=== PATIENT | male | born 1980 | race Caucasian/White ===

== ENCOUNTER 2017-05-28 03:23 | Emergency (ER) | payer BC ==
[~2017-05-28] VITALS: Ht 190.5 cm; Wt 136.1 kg
[~2017-05-28 03:23] MED LIST: ATARAX,VISTARIL50 MG PO; ATIVAN1 MG PO; AVPAK AZITHROM250 M1 PO; CARBIDOPA/LEVOD1 TA1 PO; CEPHALEXIN500 M1 PO; CYCLOBENZAPRINE10 MG PO; Clonidine HCl0.3 MG PO; FLEXERIL10 MG PO; HYDROCODON-ACETAMINO; HYDROCODONE BIT1 T11 PO; Motrin,Rufen800 MG PO; PERCOCET 325 MG1 TAB PO; PREDNICOT20 MG PO; TRAZODONE50 MG PO; VICODIN 5/500 505 MG PO; VISTARIL25 M2 PO; ZOFRAN 4 MG ED2 TAB PO; ZOFRAN4 MG PO
[2017-05-28 03:29] VITALS: BP 167/107
[2017-05-28 03:45] LABS: BILIRUBIN NEGATIVE (NEGATIVE); BLOOD 3+ (NEGATIVE); CLARITY CLEAR (CLEAR); COLOR YELLOW (YELLOW); GLUCOSE NEGATIVE (NEGATIVE); KETONE NEGATIVE (NEGATIVE); LEUKO ESTERASE NEGATIVE (NEGATIVE); NITRITE NEGATIVE (NEGATIVE); PH 5.5 (5.0-9.0); SPECIFIC GRAVITY >= 1.030 (1.005-1.030); UROBILINOGEN 0.2 E.U./dl (0.2-1.0)
[2017-05-28 03:52] LABS: BACTERIA TRACE; RBC 31-40 rbc/hpf (0-2); WBC 0-2 wbc/hpf (0-5)
[2017-05-28 04:35] LABS: BASO # 0.1 10*3/uL (0.0-0.1); BASO % 1.2 % (0.0-1.0); EOS # 0.2 10*3/uL (0.0-0.4); EOS % 2.9 % (1.0-4.0); HEMATOCRIT 43.5 % (42.0-52.0); HEMOGLOBIN 15.1 g/dl (14.0-18.0); LYMPH % 25.8 % (27.0-41.0); MEAN CELL VOLUME 82.9 fl (80.0-94.0); MEAN CORPUSCULAR HGB 28.8 pg (27.0-31.0); MEAN CORPUSCULAR HGB CONC 34.7 g/dl (33.0-37.0); MEAN PLATELET VOLUME 9.8 fl (9.6-12.3); MONO # 0.7 10*3/uL (0.1-1.0); MONO % 9.7 % (3.0-9.0); NEUT # 4.6 10*3/uL (2.3-7.9); NEUT % 60.3 % (47.0-73.0); PLATELET COUNT AUTOMATED 234 10*3/uL (130-400); RED BLOOD COUNT 5.25 10*6/uL (4.50-5.90); RED CELL DISTRI WIDTH 12.4 % (0-14.5); WHITE BLOOD COUNT 7.7 10*3/uL (4.8-10.8)
[2017-05-28 04:52] LABS: ALBUMIN 3.7 gm/dl (3.1-4.5); ALKALINE PHOSPHATASE 87 U/L (45-117); BUN 10 mg/dl (7-24); CHLORIDE 105 mmol/L (98-107); POTASSIUM 3.5 mmol/L (3.5-5.1); SGOT/AST 19 IU/L (3-35); SGPT/ALT 40 U/L (12-78); SODIUM 138 mmol/L (136-145); TOTAL PROTEIN 7.2 gm/dL (6.4-8.2)
[2017-05-28] MEDS ORDERED: Percocet 325 MG1 TAB PO (05:36)
== END 2017-05-28 06:15 | disposition home or self-care (01) ==
LOC: ED 03:23
PROVIDERS: Emergency Medicine
DX: N20.0 Calculus of kidney (principal); F11.10 Opioid abuse, uncomplicated; Z98.890 Other specified postprocedural states; Z88.1 Allergy status to other antibiotic agents

== ENCOUNTER 2017-08-24 14:45 | Inpatient (IN) | payer BC ==
[~2017-08-24] VITALS: Ht 190.5 cm; Wt 151.6 kg
[~2017-08-24 14:45] MED LIST changes: +Percocet 325 MG1 TAB PO
[2017-08-24 15:50] VITALS: BP 152/98
[2017-08-24 16:00] VITALS: BP 152/98
[2017-08-24] MEDS ORDERED: PROTONIX40 MG PO (16:37)
[2017-08-24 16:52] LABS: BASO # 0.1 10*3/uL (0.0-0.1); BASO % 0.9 % (0.0-1.0); EOS # 0.1 10*3/uL (0.0-0.4); HEMATOCRIT 45.6 % (42.0-52.0); HEMOGLOBIN 15.6 g/dl (14.0-18.0); LYMPH # 1.1 10*3/uL (1.3-4.4); LYMPH % 16.7 % (27.0-41.0); MEAN CELL VOLUME 84.9 fl (80.0-94.0); MEAN CORPUSCULAR HGB 29.1 pg (27.0-31.0); MEAN CORPUSCULAR HGB CONC 34.2 g/dl (33.0-37.0); MEAN PLATELET VOLUME 9.9 fl (9.6-12.3); MONO # 0.5 10*3/uL (0.1-1.0); MONO % 7.1 % (3.0-9.0); NEUT # 4.9 10*3/uL (2.3-7.9); NEUT % 73.1 % (47.0-73.0); PLATELET COUNT AUTOMATED 225 10*3/uL (130-400); RED BLOOD COUNT 5.37 10*6/uL (4.50-5.90); RED CELL DISTRI WIDTH 12.2 % (0-14.5); WHITE BLOOD COUNT 6.6 10*3/uL (4.8-10.8)
[2017-08-24 17:07] LABS: ALKALINE PHOSPHATASE 86 U/L (45-117); BUN 11 mg/dl (7-24); CHLORIDE 102 mmol/L (98-107); CREATININE 1.04 mg/dL (0.70-1.30); POTASSIUM 4.6 mmol/L (3.5-5.1); SGOT/AST 25 IU/L (3-35); SGPT/ALT 53 U/L (12-78); SODIUM 138 mmol/L (136-145); TOTAL PROTEIN 7.5 gm/dL (6.4-8.2)
[2017-08-24 17:18] LABS: ETHYL ALCOHOL < 3.0 mg/dl (<3)
[2017-08-24 18:43] LABS: BILIRUBIN NEGATIVE (NEGATIVE); BLOOD NEGATIVE (NEGATIVE); CLARITY CLEAR (CLEAR); COLOR YELLOW (YELLOW); GLUCOSE NEGATIVE (NEGATIVE); KETONE NEGATIVE (NEGATIVE); LEUKO ESTERASE NEGATIVE (NEGATIVE); NITRITE NEGATIVE (NEGATIVE); PH 6.5 (5.0-9.0); UROBILINOGEN 0.2 E.U./dl (0.2-1.0)
[2017-08-24 18:52] LABS: RBC 0-2 rbc/hpf (0-2); URINE AMPHETAMINES < 1000 (1000ng/ml); URINE BARBITURATES < 200 (200ng/ml); URINE BENZODIAZEPINES < 200 (200ng/ml); URINE CANNABINOIDS (THC) < 50 (50ng/ml); URINE COCAINE < 300 (300ng/ml); URINE METHADONE < 300 (300ng/ml); URINE OPIATES < 300 (300ng/ml); WBC 0-2 wbc/hpf (0-5)
[2017-08-24 18:53] LABS: URINE PHENCYCLIDINE < 25 (25ng/ml)
[2017-08-24 20:00] VITALS: BP 150/86
[2017-08-25] VITALS: BP 139/70
[2017-08-25 00:40] VITALS: BP 131/82
[2017-08-25 04:00] VITALS: BP 123/71
[2017-08-25 08:00] VITALS: BP 123/71
[2017-08-25 12:00] VITALS: BP 152/88
[2017-08-25 16:00] VITALS: BP 140/70
[2017-08-26] VITALS: BP 142/92
[2017-08-26 08:00] VITALS: BP 150/76
[2017-08-26 12:00] VITALS: BP 144/90
[2017-08-26 16:00] VITALS: BP 146/78
[2017-08-26 20:00] VITALS: BP 127/66; BP 146/78
[2017-08-27] VITALS: BP 154/86
[2017-08-27 06:07] LABS: BASO # 0.1 10*3/uL (0.0-0.1); EOS # 0.2 10*3/uL (0.0-0.4); EOS % 3.1 % (1.0-4.0); HEMATOCRIT 46.2 % (42.0-52.0); HEMOGLOBIN 16.1 g/dl (14.0-18.0); LYMPH # 2.6 10*3/uL (1.3-4.4); LYMPH % 33.6 % (27.0-41.0); MEAN CELL VOLUME 82.9 fl (80.0-94.0); MEAN CORPUSCULAR HGB 28.9 pg (27.0-31.0); MEAN CORPUSCULAR HGB CONC 34.8 g/dl (33.0-37.0); MEAN PLATELET VOLUME 10.1 fl (9.6-12.3); MONO # 0.6 10*3/uL (0.1-1.0); MONO % 8.2 % (3.0-9.0); NEUT # 4.1 10*3/uL (2.3-7.9); NEUT % 53.8 % (47.0-73.0); PLATELET COUNT AUTOMATED 237 10*3/uL (130-400); RED BLOOD COUNT 5.57 10*6/uL (4.50-5.90); RED CELL DISTRI WIDTH 12.3 % (0-14.5); WHITE BLOOD COUNT 7.7 10*3/uL (4.8-10.8)
[2017-08-27 06:15] LABS: CREATININE 1.13 mg/dL (0.70-1.30)
[2017-08-27 08:00] VITALS: BP 133/62
[2017-08-27] MEDS ORDERED: LISINOPRIL10 M1 PO (12:57)
== END 2017-08-27 15:25 | disposition home or self-care (01) | DRG 897 ==
LOC: 4NE 14:45 → 5E 14:45 → 4NE 22:44
PROVIDERS: Registered Nurse; Student in an Organized Health Care Education/Training Program
DX: F11.23 Opioid dependence with withdrawal (principal); E66.9 Obesity, unspecified; Z68.1 Body mass index [BMI] 19.9 or less, adult; G25.81 Restless legs syndrome; F41.9 Anxiety disorder, unspecified; K21.9 Gastro-esophageal reflux disease without esophagitis; I10 Essential (primary) hypertension; G89.29 Other chronic pain; M54.9 Dorsalgia, unspecified; Z87.442 Personal history of urinary calculi; Z87.828 Personal history of other (healed) physical injury and trauma; Z88.8 Allergy status to other drugs, medicaments and biological substances; Z88.1 Allergy status to other antibiotic agents; Z79.899 Other long term (current) drug therapy; Z79.1 Long term (current) use of non-steroidal anti-inflammatories (NSAID)

== ENCOUNTER 2017-12-30 16:02 | Emergency (ER) | payer BC ==
[~2017-12-30] VITALS: Ht 190.5 cm; Wt 147.4 kg
[~2017-12-30 16:02] MED LIST changes: +LISINOPRIL10 M1 PO; +PROTONIX40 MG PO
[2017-12-30 16:26] LABS: BILIRUBIN NEGATIVE (NEGATIVE); BLOOD 3+ (NEGATIVE); CLARITY SL CLOUDY (CLEAR); COLOR YELLOW (YELLOW); GLUCOSE NEGATIVE (NEGATIVE); KETONE NEGATIVE (NEGATIVE); LEUKO ESTERASE NEGATIVE (NEGATIVE); NITRITE NEGATIVE (NEGATIVE); PH 5.5 (5.0-9.0); SPECIFIC GRAVITY >= 1.030 (1.005-1.030); UROBILINOGEN 0.2 E.U./dl (0.2-1.0)
[2017-12-30 16:34] LABS: BACTERIA TRACE; RBC TNTC rbc/hpf (0-2); WBC 0-2 wbc/hpf (0-5)
[2017-12-30 16:35] LABS: BASO # 0.1 10*3/uL (0.0-0.1); BASO % 0.8 % (0.0-1.0); EOS % 0.3 % (1.0-4.0); HEMATOCRIT 45.4 % (42.0-52.0); HEMOGLOBIN 15.5 g/dl (14.0-18.0); LYMPH % 13.1 % (27.0-41.0); MEAN CORPUSCULAR HGB 28.3 pg (27.0-31.0); MEAN CORPUSCULAR HGB CONC 34.1 g/dl (33.0-37.0); MONO # 0.5 10*3/uL (0.1-1.0); MONO % 6.7 % (3.0-9.0); NEUT % 78.8 % (47.0-73.0); PLATELET COUNT AUTOMATED 237 10*3/uL (130-400); RED BLOOD COUNT 5.47 10*6/uL (4.50-5.90); RED CELL DISTRI WIDTH 12.2 % (0-14.5); WHITE BLOOD COUNT 7.6 10*3/uL (4.8-10.8)
[2017-12-30 16:54] LABS: ALBUMIN 4.6 gm/dl (3.1-4.5); ALKALINE PHOSPHATASE 100 U/L (45-117); BUN 15 mg/dl (7-24); CHLORIDE 107 mmol/L (98-107); CREATININE 1.36 mg/dL (0.70-1.30); LIPASE 116 U/L (73-393); POTASSIUM 3.8 mmol/L (3.5-5.1); SGOT/AST 25 IU/L (3-35); SGPT/ALT 47 U/L (12-78); SODIUM 141 mmol/L (136-145); TOTAL PROTEIN 7.8 gm/dL (6.4-8.2)
[2017-12-30 17:14] VITALS: BP 144/70
[2017-12-30] MEDS ORDERED: REGLAN10 M1 PO (18:07)
[2017-12-30] MEDS ORDERED: FLOMAX0.4 MG PO (18:07)
== END 2017-12-30 18:09 | disposition home or self-care (01) ==
LOC: ED 16:02
PROVIDERS: Emergency Medicine
DX: N20.0 Calculus of kidney (principal); E66.01 Morbid (severe) obesity due to excess calories; N23 Unspecified renal colic; G89.29 Other chronic pain; K21.9 Gastro-esophageal reflux disease without esophagitis; I10 Essential (primary) hypertension; G25.81 Restless legs syndrome; F11.10 Opioid abuse, uncomplicated; Z98.890 Other specified postprocedural states; Z68.41 Body mass index [BMI] 40.0-44.9, adult; Z88.1 Allergy status to other antibiotic agents; Z79.899 Other long term (current) drug therapy

== ENCOUNTER 2018-01-04 14:04 | Emergency (ER) | payer BC ==
[~2018-01-04] VITALS: Ht 190.5 cm; Wt 147.4 kg
[~2018-01-04 14:04] MED LIST changes: +FLOMAX0.4 MG PO; +REGLAN10 M1 PO
[2018-01-04 14:07] VITALS: BP 136/87
[2018-01-04] MEDS ORDERED: KEFLEX500 M1 PO (14:17)
[2018-01-04] MEDS ORDERED: SEPTDS PO (14:17)
== END 2018-01-04 14:37 | disposition home or self-care (01) ==
LOC: ED 14:04
DX: L02.31 Cutaneous abscess of buttock (principal); F41.9 Anxiety disorder, unspecified; N17.0 Acute kidney failure with tubular necrosis; K21.9 Gastro-esophageal reflux disease without esophagitis; I10 Essential (primary) hypertension; R73.9 Hyperglycemia, unspecified; Z88.1 Allergy status to other antibiotic agents; Z88.8 Allergy status to other drugs, medicaments and biological substances; Z79.899 Other long term (current) drug therapy; Z87.442 Personal history of urinary calculi; Z68.30 Body mass index [BMI] 30.0-30.9, adult

== ENCOUNTER 2018-01-07 15:08 | Emergency (ER) | payer BC ==
[~2018-01-07] VITALS: Ht 190.5 cm; Wt 147.4 kg
[~2018-01-07 15:08] MED LIST changes: +KEFLEX500 M1 PO; +SEPTDS PO
[2018-01-07 15:09] VITALS: BP 151/93
== END 2018-01-07 15:22 | disposition home or self-care (01) ==
LOC: ED 15:08
DX: L02.31 Cutaneous abscess of buttock (principal); Z88.8 Allergy status to other drugs, medicaments and biological substances

== ENCOUNTER 2018-01-16 11:52 | Inpatient (IN) | payer BC ==
[~2018-01-16] VITALS: Ht 190.5 cm; Wt 134.8 kg
[2018-01-16 12:00] VITALS: BP 112/79
[2018-01-16 12:28] LABS: BASO % 0.5 % (0.0-1.0); EOS # 0.1 10*3/uL (0.0-0.4); EOS % 0.9 % (1.0-4.0); HEMATOCRIT 45.4 % (42.0-52.0); HEMOGLOBIN 15.7 g/dl (14.0-18.0); LYMPH # 1.1 10*3/uL (1.3-4.4); LYMPH % 19.3 % (27.0-41.0); MEAN CELL VOLUME 80.9 fl (80.0-94.0); MEAN CORPUSCULAR HGB CONC 34.6 g/dl (33.0-37.0); MEAN PLATELET VOLUME 10.7 fl (9.6-12.3); MONO # 0.4 10*3/uL (0.1-1.0); MONO % 6.5 % (3.0-9.0); NEUT # 4.3 10*3/uL (2.3-7.9); NEUT % 72.6 % (47.0-73.0); PLATELET COUNT AUTOMATED 195 10*3/uL (130-400); RED BLOOD COUNT 5.61 10*6/uL (4.50-5.90); RED CELL DISTRI WIDTH 11.9 % (0-14.5); WHITE BLOOD COUNT 5.9 10*3/uL (4.8-10.8)
[2018-01-16 12:37] LABS: ACT PARTIAL THROMBO TIME 21.3 SECONDS (20.8-31.5); INTERNATIONAL NORM RATIO 1.1 (2.0-3.5)
[2018-01-16 12:44] LABS: ALKALINE PHOSPHATASE 88 U/L (45-117); BUN 8 mg/dl (7-24); CHLORIDE 97 mmol/L (98-107); CREATININE 1.13 mg/dL (0.70-1.30); POTASSIUM 3.6 mmol/L (3.5-5.1); SGOT/AST 27 IU/L (3-35); SGPT/ALT 40 U/L (12-78); SODIUM 135 mmol/L (136-145); TOTAL PROTEIN 8.3 gm/dL (6.4-8.2)
[2018-01-16 13:47] VITALS: BP 114/63
[2018-01-16 16:00] VITALS: BP 136/87
[2018-01-16 20:00] VITALS: BP 125/78
[2018-01-17] VITALS: BP 122/80
[2018-01-17 06:59] LABS: HEMOGLOBIN 13.7 g/dl (14.0-18.0); MEAN CELL VOLUME 81.8 fl (80.0-94.0); MEAN CORPUSCULAR HGB CONC 34.3 g/dl (33.0-37.0); MEAN PLATELET VOLUME 10.8 fl (9.6-12.3); PLATELET COUNT AUTOMATED 168 10*3/uL (130-400); RED BLOOD COUNT 4.89 10*6/uL (4.50-5.90); RED CELL DISTRI WIDTH 11.8 % (0-14.5); WHITE BLOOD COUNT 5.1 10*3/uL (4.8-10.8)
[2018-01-17 07:31] LABS: ALBUMIN 3.3 gm/dl (3.1-4.5); BUN 6 mg/dl (7-24); CHLORIDE 101 mmol/L (98-107); CHOLESTEROL 127 mg/dL (<200); CREATININE 1.01 mg/dL (0.70-1.30); HDL CHOLESTEROL 17 mg/dl (40-60); LDL CHOLESTEROL 97 mg/dL (9-159); PHOSPHOROUS 2.7 mg/dL (2.5-4.9); POTASSIUM 3.4 mmol/L (3.5-5.1); SGOT/AST 20 IU/L (3-35); SGPT/ALT 32 U/L (12-78); SODIUM 137 mmol/L (136-145); TOTAL PROTEIN 6.9 gm/dL (6.4-8.2); TRIGLYCERIDES 67 mg/dl (<150); VLDL CHOLESTEROL 13 mg/dL (6-40)
[2018-01-17 07:37] LABS: ACT PARTIAL THROMBO TIME 21.5 SECONDS (20.8-31.5); INTERNATIONAL NORM RATIO 1.1 (2.0-3.5)
[2018-01-17 07:39] LABS: ALKALINE PHOSPHATASE 73 U/L (45-117); THYROID STIM HORMONE (HS) 0.501 uIU/ml (0.358-4.75)
[2018-01-17 08:00] VITALS: BP 116/64
[2018-01-17 08:02] LABS: ATYPICAL LYMPHS 4 % (0-0); BASOPHILS 1 % (0-1); PLATELET SUFFICIENCY NORMAL (NORMAL); TOTAL CELLS COUNTED 100 #CELLS
[2018-01-17 09:20] LABS: VITAMIN D, 25-HYDROXY 20.7 ng/mL (30-100)
[2018-01-17 12:00] VITALS: BP 148/98
[2018-01-17 16:00] VITALS: BP 131/84
[2018-01-17 20:00] VITALS: BP 131/68
[2018-01-18] VITALS: BP 128/79
[2018-01-18 06:17] LABS: BASO % 0.5 % (0.0-1.0); EOS % 0.6 % (1.0-4.0); HEMATOCRIT 39.7 % (42.0-52.0); HEMOGLOBIN 13.7 g/dl (14.0-18.0); LYMPH % 29.6 % (27.0-41.0); MEAN CELL VOLUME 81.2 fl (80.0-94.0); MEAN CORPUSCULAR HGB CONC 34.5 g/dl (33.0-37.0); MONO # 0.5 10*3/uL (0.1-1.0); MONO % 7.4 % (3.0-9.0); NEUT # 4.1 10*3/uL (2.3-7.9); NEUT % 61.4 % (47.0-73.0); PLATELET COUNT AUTOMATED 206 10*3/uL (130-400); RED BLOOD COUNT 4.89 10*6/uL (4.50-5.90); RED CELL DISTRI WIDTH 11.7 % (0-14.5); WHITE BLOOD COUNT 6.6 10*3/uL (4.8-10.8)
[2018-01-18 06:38] LABS: BUN 5 mg/dl (7-24); CHLORIDE 102 mmol/L (98-107); CREATININE 1.05 mg/dL (0.70-1.30); POTASSIUM 3.6 mmol/L (3.5-5.1); SODIUM 138 mmol/L (136-145)
[2018-01-18 08:00] VITALS: BP 126/78
[2018-01-18 12:00] VITALS: BP 117/78
[2018-01-18 16:00] VITALS: BP 143/83
[2018-01-18 20:00] VITALS: BP 142/94
[2018-01-19] VITALS: BP 149/92
[2018-01-19 06:08] LABS: HIV 1+2 AB + HIV1 P24 AG Non Reactive (Non Reactive)
[2018-01-19 08:00] VITALS: BP 133/81
[2018-01-19 08:01] LABS: HEMATOCRIT 38.6 % (42.0-52.0); HEMOGLOBIN 13.4 g/dl (14.0-18.0); MEAN CELL VOLUME 80.6 fl (80.0-94.0); MEAN CORPUSCULAR HGB CONC 34.7 g/dl (33.0-37.0); MEAN PLATELET VOLUME 10.7 fl (9.6-12.3); PLATELET COUNT AUTOMATED 200 10*3/uL (130-400); RED BLOOD COUNT 4.79 10*6/uL (4.50-5.90); RED CELL DISTRI WIDTH 11.8 % (0-14.5); WHITE BLOOD COUNT 5.6 10*3/uL (4.8-10.8)
[2018-01-19 08:26] LABS: ALBUMIN 3.2 gm/dl (3.1-4.5); BUN 6 mg/dl (7-24); CHLORIDE 105 mmol/L (98-107); POTASSIUM 3.5 mmol/L (3.5-5.1); SGOT/AST 19 IU/L (3-35); SGPT/ALT 30 U/L (12-78); SODIUM 139 mmol/L (136-145)
[2018-01-19 08:28] LABS: ALKALINE PHOSPHATASE 71 U/L (45-117); CREATININE 1.05 mg/dL (0.70-1.30); TOTAL PROTEIN 6.6 gm/dL (6.4-8.2)
[2018-01-19 08:32] LABS: BASOPHILS 1 % (0-1); PLASMA CELL 1 % (0-0); PLATELET SUFFICIENCY NORMAL (NORMAL); TOTAL CELLS COUNTED 100 #CELLS
[2018-01-19 09:05] LABS: HEPATITIS C AB 0.1 (0.0-0.9)
[2018-01-19 12:00] VITALS: BP 134/78
[2018-01-19 16:00] VITALS: BP 142/94
[2018-01-19 20:00] VITALS: BP 132/79
[2018-01-20] VITALS: BP 144/90
[2018-01-20 06:44] LABS: HEMATOCRIT 38.7 % (42.0-52.0); HEMOGLOBIN 13.5 g/dl (14.0-18.0); MEAN CELL VOLUME 80.5 fl (80.0-94.0); MEAN CORPUSCULAR HGB 28.1 pg (27.0-31.0); MEAN CORPUSCULAR HGB CONC 34.9 g/dl (33.0-37.0); PLATELET COUNT AUTOMATED 220 10*3/uL (130-400); RED BLOOD COUNT 4.81 10*6/uL (4.50-5.90); RED CELL DISTRI WIDTH 11.9 % (0-14.5); WHITE BLOOD COUNT 5.7 10*3/uL (4.8-10.8)
[2018-01-20 07:03] LABS: ALBUMIN 3.3 gm/dl (3.1-4.5); BUN 8 mg/dl (7-24); CHLORIDE 105 mmol/L (98-107); POTASSIUM 3.5 mmol/L (3.5-5.1); SODIUM 140 mmol/L (136-145)
[2018-01-20 07:07] LABS: ALKALINE PHOSPHATASE 70 U/L (45-117); BASOPHILS 3 % (0-1); CREATININE 0.96 mg/dL (0.70-1.30); SGOT/AST 26 IU/L (3-35); SGPT/ALT 38 U/L (12-78); TOTAL CELLS COUNTED 100 #CELLS; TOTAL PROTEIN 6.7 gm/dL (6.4-8.2)
[2018-01-20 07:08] LABS: PLATELET SUFFICIENCY NORMAL (NORMAL)
[2018-01-20 08:00] VITALS: BP 116/63
[2018-01-20 12:00] VITALS: BP 118/63
[2018-01-20] MEDS ORDERED: ZOVIRAX400 MG PO (14:00)
[2018-01-20] MEDS ORDERED: EC NAPROSYN500 MG PO (14:00)
== END 2018-01-20 15:18 | disposition home or self-care (01) | DRG 158 ==
LOC: ED 11:52 → 4E 13:56 → EDHOLD 13:56 → 4E 14:43
PROVIDERS: Internal Medicine; Nurse Practitioner Family
PROC: 0H9GXZZ Drainage of Left Hand Skin, External Approach (ICD-10-PCS; principal; 2018-01-19)
DX: K12.1 Other forms of stomatitis (principal); E87.1 Hypo-osmolality and hyponatremia; E66.01 Morbid (severe) obesity due to excess calories; L03.012 Cellulitis of left finger; K12.30 Oral mucositis (ulcerative), unspecified; B00.9 Herpesviral infection, unspecified; L03.011 Cellulitis of right finger; M54.9 Dorsalgia, unspecified; F41.9 Anxiety disorder, unspecified; G89.29 Other chronic pain; F11.10 Opioid abuse, uncomplicated; G25.81 Restless legs syndrome; L98.8 Other specified disorders of the skin and subcutaneous tissue; R73.9 Hyperglycemia, unspecified; E55.9 Vitamin D deficiency, unspecified; E87.6 Hypokalemia; A54.5 Gonococcal pharyngitis; K21.9 Gastro-esophageal reflux disease without esophagitis; I10 Essential (primary) hypertension; Z87.442 Personal history of urinary calculi; Z88.1 Allergy status to other antibiotic agents; Z88.8 Allergy status to other drugs, medicaments and biological substances; Z82.49 Family history of ischemic heart disease and other diseases of the circulatory system; Z80.9 Family history of malignant neoplasm, unspecified; Z82.5 Family history of asthma and other chronic lower respiratory diseases; Z68.37 Body mass index [BMI] 37.0-37.9, adult

== ENCOUNTER 2018-01-25 18:30 | Emergency (ER) | payer BC ==
[~2018-01-25] VITALS: Ht 190.5 cm; Wt 136.1 kg
[~2018-01-25 18:30] MED LIST changes: +EC NAPROSYN500 MG PO; +ZOVIRAX400 MG PO
[2018-01-25 18:53] LABS: BASO # 0.1 10*3/uL (0.0-0.1); BASO % 0.8 % (0.0-1.0); EOS # 0.1 10*3/uL (0.0-0.4); EOS % 1.3 % (1.0-4.0); HEMATOCRIT 42.3 % (42.0-52.0); HEMOGLOBIN 14.5 g/dl (14.0-18.0); LYMPH # 1.8 10*3/uL (1.3-4.4); LYMPH % 18.1 % (27.0-41.0); MEAN CELL VOLUME 82.1 fl (80.0-94.0); MEAN CORPUSCULAR HGB 28.2 pg (27.0-31.0); MEAN CORPUSCULAR HGB CONC 34.3 g/dl (33.0-37.0); MONO # 0.7 10*3/uL (0.1-1.0); MONO % 6.8 % (3.0-9.0); NEUT # 7.1 10*3/uL (2.3-7.9); NEUT % 72.8 % (47.0-73.0); PLATELET COUNT AUTOMATED 284 10*3/uL (130-400); RED BLOOD COUNT 5.15 10*6/uL (4.50-5.90); RED CELL DISTRI WIDTH 12.5 % (0-14.5); WHITE BLOOD COUNT 9.7 10*3/uL (4.8-10.8)
[2018-01-25 19:07] LABS: ALBUMIN 3.9 gm/dl (3.1-4.5); ALKALINE PHOSPHATASE 80 U/L (45-117); BUN 12 mg/dl (7-24); CHLORIDE 105 mmol/L (98-107); CREATININE 1.54 mg/dL (0.70-1.30); POTASSIUM 3.6 mmol/L (3.5-5.1); SGOT/AST 15 IU/L (3-35); SGPT/ALT 35 U/L (12-78); SODIUM 140 mmol/L (136-145); TOTAL PROTEIN 7.4 gm/dL (6.4-8.2)
[2018-01-25 19:11] LABS: BILIRUBIN 1+ (NEGATIVE); BLOOD 1+ (NEGATIVE); CLARITY SL CLOUDY (CLEAR); COLOR YELLOW (YELLOW); GLUCOSE NEGATIVE (NEGATIVE); KETONE NEGATIVE (NEGATIVE); LEUKO ESTERASE NEGATIVE (NEGATIVE); NITRITE NEGATIVE (NEGATIVE); PH 5.5 (5.0-9.0); SPECIFIC GRAVITY >= 1.030 (1.005-1.030); UROBILINOGEN 0.2 E.U./dl (0.2-1.0)
[2018-01-25 19:19] LABS: BACTERIA 2+; EPITHELIAL CELLS 0-2; MUCOUS 1+; WBC 0-2 wbc/hpf (0-5)
[2018-01-25 20:07] VITALS: BP 148/93
[2018-01-25] MEDS ORDERED: SEPTDS PO (20:17)
[2018-01-25] MEDS ORDERED: Percocet 325 MG1 TAB PO (20:17)
[2018-01-25] MEDS ORDERED: ZOFRAN4 MG PO (20:17)
== END 2018-01-25 20:24 | disposition home or self-care (01) ==
LOC: ED 18:30
PROVIDERS: Nurse Practitioner Family
DX: N20.0 Calculus of kidney (principal); N13.30 Unspecified hydronephrosis; G89.29 Other chronic pain; K21.9 Gastro-esophageal reflux disease without esophagitis; I10 Essential (primary) hypertension; E66.01 Morbid (severe) obesity due to excess calories; F11.10 Opioid abuse, uncomplicated; G25.81 Restless legs syndrome; Z98.890 Other specified postprocedural states; Z68.41 Body mass index [BMI] 40.0-44.9, adult; Z88.1 Allergy status to other antibiotic agents

== ENCOUNTER 2018-01-28 13:44 | Emergency (ER) | payer BC ==
[~2018-01-28] VITALS: Ht 190.5 cm; Wt 136.1 kg
[2018-01-28 13:45] VITALS: BP 133/99
[2018-01-28 14:35] LABS: BASO # 0.1 10*3/uL (0.0-0.1); BASO % 0.9 % (0.0-1.0); EOS # 0.1 10*3/uL (0.0-0.4); EOS % 1.1 % (1.0-4.0); HEMATOCRIT 42.3 % (42.0-52.0); HEMOGLOBIN 14.2 g/dl (14.0-18.0); LYMPH # 0.9 10*3/uL (1.3-4.4); LYMPH % 13.4 % (27.0-41.0); MEAN CELL VOLUME 83.8 fl (80.0-94.0); MEAN CORPUSCULAR HGB 28.1 pg (27.0-31.0); MEAN CORPUSCULAR HGB CONC 33.6 g/dl (33.0-37.0); MONO # 0.4 10*3/uL (0.1-1.0); MONO % 6.2 % (3.0-9.0); NEUT % 78.2 % (47.0-73.0); PLATELET COUNT AUTOMATED 243 10*3/uL (130-400); RED BLOOD COUNT 5.05 10*6/uL (4.50-5.90); RED CELL DISTRI WIDTH 12.7 % (0-14.5); WHITE BLOOD COUNT 6.4 10*3/uL (4.8-10.8)
[2018-01-28 14:51] LABS: CREATININE 2.02 mg/dL (0.70-1.30); POTASSIUM 4.2 mmol/L (3.5-5.1); TOTAL PROTEIN 7.9 gm/dL (6.4-8.2)
[2018-01-28] MEDS ORDERED: ZOFRAN ODT4 MG SL (15:58)
[2018-01-28] MEDS ORDERED: ZOVIRAX400 MG PO (15:58)
[2018-01-28] MEDS ORDERED: FLOMAX0.4 MG PO (15:58)
[2018-01-28] MEDS ORDERED: PERCOCET 5-3251 EACH PO (15:59)
== END 2018-01-28 16:11 | disposition home or self-care (01) ==
LOC: ED 13:44
PROVIDERS: Emergency Medicine
DX: B00.2 Herpesviral gingivostomatitis and pharyngotonsillitis (principal); N20.1 Calculus of ureter; N17.9 Acute kidney failure, unspecified; G89.29 Other chronic pain; K21.9 Gastro-esophageal reflux disease without esophagitis; I10 Essential (primary) hypertension; E66.01 Morbid (severe) obesity due to excess calories; F11.10 Opioid abuse, uncomplicated; G25.81 Restless legs syndrome; Z68.41 Body mass index [BMI] 40.0-44.9, adult; Z98.890 Other specified postprocedural states; Z88.1 Allergy status to other antibiotic agents; Z88.8 Allergy status to other drugs, medicaments and biological substances

== ENCOUNTER 2019-03-30 09:26 | Emergency (ER) | payer BC ==
[~2019-03-30] VITALS: Ht 190.5 cm; Wt 127.0 kg
[~2019-03-30 09:26] MED LIST changes: +PERCOCET 5-3251 EACH PO; +ZOFRAN ODT4 MG SL
[2019-03-30 09:27] VITALS: BP 131/90
[2019-03-30] MEDS ORDERED: IBU800 MG PO (11:05)
== END 2019-03-30 11:15 | disposition home or self-care (01) ==
LOC: ED 09:26
DX: S86.912A Strain of unspecified muscle(s) and tendon(s) at lower leg level, left leg, initial encounter (principal); M54.5 Low back pain; K21.9 Gastro-esophageal reflux disease without esophagitis; I10 Essential (primary) hypertension; E66.01 Morbid (severe) obesity due to excess calories; Z68.41 Body mass index [BMI] 40.0-44.9, adult; Z88.2 Allergy status to sulfonamides; Z88.1 Allergy status to other antibiotic agents; X58.XXXA Exposure to other specified factors, initial encounter; Y93.89 Activity, other specified; Y92.89 Other specified places as the place of occurrence of the external cause; Y99.0 Civilian activity done for income or pay

== ENCOUNTER 2019-05-20 21:22 | Emergency (ER) | payer BC ==
[~2019-05-20] VITALS: Ht 190.5 cm; Wt 131.5 kg
[2019-05-20 21:22] VITALS: BP 151/89
[~2019-05-20 21:22] MED LIST changes: +IBU800 MG PO
[2019-05-20] MEDS ORDERED: CLINDAMYCIN HC300 MG PO (21:53)
== END 2019-05-20 21:59 | disposition home or self-care (01) ==
LOC: ED 21:22
DX: K08.89 Other specified disorders of teeth and supporting structures (principal); F17.200 Nicotine dependence, unspecified, uncomplicated; Z88.2 Allergy status to sulfonamides; Z88.1 Allergy status to other antibiotic agents

== ENCOUNTER 2019-09-03 14:00 | Emergency (ER) | payer BC ==
[~2019-09-03] VITALS: Ht 190.5 cm; Wt 136.1 kg
[~2019-09-03 14:00] MED LIST changes: +CLINDAMYCIN HC300 MG PO
[2019-09-03 14:14] VITALS: BP 148/101
[2019-09-03] MEDS ORDERED: Motrin,Rufen800 MG PO (16:23)
[2019-09-03] MEDS ORDERED: CYCLOBENZAPRINE10 MG PO (16:23)
== END 2019-09-03 16:54 | disposition home or self-care (01) ==
LOC: ED 14:00
DX: S06.0X0A Concussion without loss of consciousness, initial encounter (principal); S16.1XXA Strain of muscle, fascia and tendon at neck level, initial encounter; G89.29 Other chronic pain; K21.9 Gastro-esophageal reflux disease without esophagitis; E66.9 Obesity, unspecified; Z68.30 Body mass index [BMI] 30.0-30.9, adult; Z88.2 Allergy status to sulfonamides; Z88.1 Allergy status to other antibiotic agents; V49.9XXA Car occupant (driver) (passenger) injured in unspecified traffic accident, initial encounter; Y93.I9 Activity, other involving external motion; Y92.828 Other wilderness area as the place of occurrence of the external cause; Y99.8 Other external cause status

== ENCOUNTER 2019-09-04 13:10 | Emergency (ER) | payer BC ==
[~2019-09-04] VITALS: Wt 108.9 kg
[2019-09-04 13:16] VITALS: BP 140/100
[2019-09-04 13:30] LABS: BILIRUBIN NEGATIVE (NEGATIVE); BLOOD NEGATIVE (NEGATIVE); CLARITY SL CLOUDY (CLEAR); COLOR YELLOW (YELLOW); GLUCOSE NEGATIVE (NEGATIVE); KETONE NEGATIVE (NEGATIVE); LEUKO ESTERASE NEGATIVE (NEGATIVE); NITRITE NEGATIVE (NEGATIVE); PH 5.5 (5.0-9.0); SPECIFIC GRAVITY >= 1.030 (1.005-1.030); UROBILINOGEN 0.2 E.U./dl (0.2-1.0)
[2019-09-04 13:40] LABS: URINE AMPHETAMINES < 1000 (1000ng/ml); URINE BARBITURATES < 200 (200ng/ml); URINE BENZODIAZEPINES < 200 (200ng/ml); URINE CANNABINOIDS (THC) < 50 (50ng/ml); URINE COCAINE < 300 (300ng/ml); URINE METHADONE < 300 (300ng/ml); URINE OPIATES < 300 (300ng/ml)
[2019-09-04 13:43] LABS: URINE PHENCYCLIDINE < 25 (25ng/ml)
[2019-09-04 13:50] LABS: BACTERIA 2+
[2019-09-04 13:51] LABS: ALBUMIN 4.5 gm/dl (3.1-4.5); ALKALINE PHOSPHATASE 100 U/L (45-117); BUN 9 mg/dl (7-24); CHLORIDE 107 mmol/L (98-107); CREATININE 1.31 mg/dL (0.70-1.30); POTASSIUM 3.7 mmol/L (3.5-5.1); SGOT/AST 16 IU/L (3-35); SGPT/ALT 34 U/L (12-78); SODIUM 138 mmol/L (136-145); TOTAL PROTEIN 8.3 gm/dL (6.4-8.2)
[2019-09-04 13:51] LABS: FINE GRANULAR CAST TNTC
== END 2019-09-04 14:14 | disposition home or self-care (01) ==
LOC: ED 13:10
PROVIDERS: Emergency Medicine
DX: F11.90 Opioid use, unspecified, uncomplicated (principal); G89.29 Other chronic pain; I10 Essential (primary) hypertension; E66.01 Morbid (severe) obesity due to excess calories; J45.909 Unspecified asthma, uncomplicated; F17.200 Nicotine dependence, unspecified, uncomplicated; Z88.2 Allergy status to sulfonamides; Z88.1 Allergy status to other antibiotic agents; Z79.899 Other long term (current) drug therapy; Z68.41 Body mass index [BMI] 40.0-44.9, adult

== ENCOUNTER 2019-12-27 13:43 | Inpatient (IN) | payer BC ==
[~2019-12-27] VITALS: Ht 190.5 cm; Wt 143.3 kg
[2019-12-27 13:53] VITALS: BP 160/107
[2019-12-27 14:36] LABS: BILIRUBIN NEGATIVE (NEGATIVE); BLOOD NEGATIVE (NEGATIVE); CLARITY CLEAR (CLEAR); COLOR YELLOW (YELLOW); GLUCOSE NEGATIVE (NEGATIVE); KETONE NEGATIVE (NEGATIVE); LEUKO ESTERASE NEGATIVE (NEGATIVE); NITRITE NEGATIVE (NEGATIVE); PH 8.5 (5.0-9.0); UROBILINOGEN 0.2 E.U./dl (0.2-1.0)
[2019-12-27 14:39] LABS: BASO # 0.1 10*3/uL (0.0-0.1); BASO % 0.8 % (0.0-1.0); EOS # 0.1 10*3/uL (0.0-0.4); EOS % 1.2 % (1.0-4.0); HEMATOCRIT 50.1 % (42.0-52.0); LYMPH # 1.1 10*3/uL (1.3-4.4); LYMPH % 12.4 % (27.0-41.0); MEAN CELL VOLUME 84.9 fl (80.0-94.0); MEAN CORPUSCULAR HGB CONC 34.1 g/dl (33.0-37.0); MONO # 0.5 10*3/uL (0.1-1.0); MONO % 5.1 % (3.0-9.0); NEUT # 7.3 10*3/uL (2.3-7.9); NEUT % 80.4 % (47.0-73.0); PLATELET COUNT AUTOMATED 275 10*3/uL (130-400); RED CELL DISTRI WIDTH 12.4 % (0-14.5); WHITE BLOOD COUNT 9.1 10*3/uL (4.8-10.8)
[2019-12-27 14:41] LABS: BACTERIA TRACE; WBC 0-2 wbc/hpf (0-5)
[2019-12-27 14:42] LABS: URINE AMPHETAMINES < 1000 (1000ng/ml); URINE BARBITURATES < 200 (200ng/ml); URINE BENZODIAZEPINES < 200 (200ng/ml); URINE CANNABINOIDS (THC) < 50 (50ng/ml); URINE COCAINE < 300 (300ng/ml); URINE METHADONE < 300 (300ng/ml); URINE OPIATES < 300 (300ng/ml)
[2019-12-27 14:43] LABS: URINE PHENCYCLIDINE < 25 (25ng/ml)
[2019-12-27 14:49] LABS: ACT PARTIAL THROMBO TIME 29.2 SECONDS (20.0-32.1)
[2019-12-27 14:54] LABS: ALBUMIN 4.1 gm/dl (3.1-4.5); ALKALINE PHOSPHATASE 101 U/L (45-117); BUN 7 mg/dl (7-24); CHLORIDE 104 mmol/L (98-107); CREATININE 1.06 mg/dL (0.70-1.30); LIPASE 71 U/L (73-393); POTASSIUM 4.5 mmol/L (3.5-5.1); SGOT/AST 30 IU/L (3-35); SGPT/ALT 54 U/L (12-78); SODIUM 136 mmol/L (136-145); TOTAL PROTEIN 8.1 gm/dL (6.4-8.2)
[2019-12-27 14:55] LABS: ACETAMINOPHEN (TYLENOL) < 3.0 ug/ml (10-30); ETHYL ALCOHOL < 3.0 mg/dl (<3); TROPONIN I < 0.015 ng/ml (<0.045)
--- NOTE | 2019-12-27 15:52 | NUR ---
[place] STAFF IN TO SEE PATIENT. PATIENT MEETS [facility]. PATIENT WANTS TO CONTINUE TO FOLLOW UP WITH [facility] FOR HIS AFTERCARE PLAN. DARYA DIAZ B.A. SHIP OFFICER
[2019-12-27 16:00] VITALS: BP 155/95
--- NOTE | 2019-12-27 16:03 | NUR ---
PT C/O HEACHACHE AND ANXIETYN PRN TYLENOL AND VISTARIL GIVEN PER ORDER
--- NOTE | 2019-12-27 16:09 | NUR ---
39 year old MALE admitted to room # 427 for stabilization. 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 Compliant with admission procedure. Patient denies any anxiety, but is unable to sit still, taps toes to floor continuously, looks about room, unable to focus eyes on nurse during interview. See assessment forms for additional information about patient status.
--- NOTE | 2019-12-27 16:45 | NUR ---
PT RESTING IN BED WITH EYES CLOSED NO COMPLAINTS AT THIS TIME
--- NOTE | 2019-12-27 19:28 | NUR ---
PATIENT ATTENDENT REPORTED SMELL OF CIGARETTE SMOKE COMING FROM END OF HALLWAY. PATIENT ROOM EXAMINED AND NO SMELL OF CIGARETTE SMOKE IN ROOM. ASSESSMENT IS COMPLETE. PATIENT C/O RESTLESSNESS. BED IS LOW, LOCKED, AND CALL LIGHT IS WITHIN REACH. SEE SHIFT ASSESSMENT.
--- NOTE | 2019-12-27 19:35 | NUR ---
PRN REQUIP GIVEN FOR C/O RESTLESSNESS. WILL MONITOR EFFECT.
[2019-12-27 20:00] VITALS: BP 126/64
--- NOTE | 2019-12-27 21:00 | NUR ---
PRN REQUIP INEFFECTIVE PER PATIENT. HE STATES HE STILL FEELS RESTLESS.
--- NOTE | 2019-12-27 22:45 | NUR ---
PRN MEDICATIONS GIVEN FOR MULTIPLE COMPLAINTS AT 2205. PATIENT TOLERATED WELL, CALL LIGHT IS WITHIN REACH. SANDWICH AND ANGEL MARY PROVIDED WELL. WILL CONTINUE TO MONITOR.
[2019-12-28] VITALS: BP 140/77
--- NOTE | 2019-12-28 01:00 | NUR ---
PRN MEDICATIONS APPEAR EFFECTIVE, PATIENT IS SLEEPING WITH EASY AND REGULAR RESPERS. CALL LIGHT IS WITHIN REACH.
--- NOTE | 2019-12-28 03:29 | NUR ---
PATIENT AWAKENED EASILY FOR SCHEDULED LIBRIUM AT 0325. PATIENT C/O SWEATS. CALL LIGHT IS WITHIN REACH.
--- NOTE | 2019-12-28 03:45 | NUR ---
CHART CHECK COMPLETE.
[2019-12-28 08:00] VITALS: BP 124/75
--- NOTE | 2019-12-28 08:10 | NUR ---
PT C/O OF ANXIETY, RESTLESS LEG AND LOWER BACK PAIN RATING 10/10 PRN VISTARIL,REQUIP AND MOTRIN GIVEN PER ORDER
--- NOTE | 2019-12-28 09:00 | NUR ---
PT RESTING IN BED WITH EYES CLOSED, AWAKES EASILY, PER PT HE IS STILL HAVE SOME LOWER BACK PAIN BUT ITS CURRENTLY AT A MANAGABLE LEVEL
--- NOTE | 2019-12-28 11:34 | NUR ---
PT C/O OF LOWER BACK PAIN RATING 10/10 PRN TYLENOL AND ROBAXIN GIVEN PER ORDER
[2019-12-28 12:00] VITALS: BP 141/88
--- NOTE | 2019-12-28 12:00 | NUR ---
PT STILL C/O OF LOWER BACK DISCOMFORT, JOSE GRAYSON NOTIFIED
--- NOTE | 2019-12-28 14:24 | NUR ---
[place] STAFF IN TO SEE PATIENT. [facility] STAFF PROVIED PATIENT WITH REFERRAL OPTIONS AND PATIENT STATED THAT HE WILL THINK ABOUT RESIDENTIAL TREATMENT. PATIENT IS CURRENTLY ATTENDING MEETINGS WITH [facility]. [place] STAFF WILL FOLLOW UP WITH PATIENT TO DISCUSS OPTIONS. DARYA DIAZ B.A. [employer] ARCHITECT
[2019-12-28 16:00] VITALS: BP 135/89
[2019-12-28 20:00] VITALS: BP 139/84
--- NOTE | 2019-12-28 20:15 | NUR ---
IN TO ASSESS PATIENT. PATIENT COMPLAINING OF BACK PAIN AND RESTLESSNESS. EXPLAINED TO PATIENT THAT PRN'S CAN BE GIVEN IN AN HOUR WITH HIS NICOTINE PATCH. PATIENT ASKED IF HE WOULD BE ABLE TO STEP OUTSIDE AND SMOKE, INFORMED THAT SMOKING IS NOT ALLOWED AND THAT HE WILL GET DISCHARGED FOR DOING SO. PATIENT RECEPTIVE. ASSESSMENT NEGATIVE. WILL CONTINUE TO MONITOR.
--- NOTE | 2019-12-28 21:20 | NUR ---
ROBAXIN, REQUIP, MOTRIN, AND TRAZADONE ADMINISTERED FOR PT C/O RESTLESSNESS AND INSOMNIA. WILL MONITOR.
--- NOTE | 2019-12-28 23:49 | NUR ---
24 HOUR CHART CHECK COMPLETE.
[2019-12-29] VITALS: BP 132/96
--- NOTE | 2019-12-29 07:44 | NUR ---
Medicated with robaxin and tylenol per prn order for complaints of back pain.
[2019-12-29 08:00] VITALS: BP 115/81
--- NOTE | 2019-12-29 08:30 | NUR ---
States that tylenol and robaxin was effective.
[2019-12-29] MEDS ORDERED: Motrin,Rufen800 MG PO (11:11)
--- NOTE | 2019-12-29 11:26 | NUR ---
Discharge instructions reviewed with patient. Patient receptive and verbalizes understanding. Follow-up care arranged. Written instructions given to patient. DC via ambulatory with belongings and cigarettes that were in [place]. Pt states he smoked in bathroom the first night he was here and didnt get caught. AMANDA PRYOR
== END 2019-12-29 11:26 | disposition home or self-care (01) | DRG 897 ==
LOC: ED 13:43 → EDHOLD 14:26 → 4E 14:26
PROVIDERS: Emergency Medicine; ADMIT Internal Medicine
DX: F11.23 Opioid dependence with withdrawal (principal); F41.9 Anxiety disorder, unspecified; E66.9 Obesity, unspecified; M54.5 Low back pain; G89.29 Other chronic pain; K21.9 Gastro-esophageal reflux disease without esophagitis; R73.9 Hyperglycemia, unspecified; I10 Essential (primary) hypertension; E83.41 Hypermagnesemia; Z87.891 Personal history of nicotine dependence; Z88.1 Allergy status to other antibiotic agents; Z88.2 Allergy status to sulfonamides; Z88.8 Allergy status to other drugs, medicaments and biological substances; Z87.442 Personal history of urinary calculi; Z79.899 Other long term (current) drug therapy; Z68.39 Body mass index [BMI] 39.0-39.9, adult

== ENCOUNTER 2021-02-17 22:15 | Emergency (ER) | payer BC ==
[~2021-02-17] VITALS: Ht 190.5 cm; Wt 154.2 kg
[2021-02-17 22:32] VITALS: BP 139/95
[2021-02-17 23:40] LABS: BASO # 0.1 10*3/uL (0.0-0.1); EOS # 0.2 10*3/uL (0.0-0.4); EOS % 2.4 % (1.0-4.0); HEMATOCRIT 45.2 % (42.0-52.0); LYMPH # 2.1 10*3/uL (1.3-4.4); MEAN CELL VOLUME 84.6 fl (80.0-94.0); MEAN CORPUSCULAR HGB 28.5 pg (27.0-31.0); MEAN CORPUSCULAR HGB CONC 33.6 g/dl (33.0-37.0); MEAN PLATELET VOLUME 9.6 fl (9.6-12.3); MONO # 0.7 10*3/uL (0.1-1.0); MONO % 7.7 % (3.0-9.0); NEUT # 5.6 10*3/uL (2.3-7.9); NEUT % 64.8 % (47.0-73.0); PLATELET COUNT AUTOMATED 266 10*3/uL (130-400); RED BLOOD COUNT 5.34 10*6/uL (4.50-5.90); RED CELL DISTRI WIDTH 12.5 % (0-14.5); WHITE BLOOD COUNT 8.6 10*3/uL (4.8-10.8)
[2021-02-17 23:57] LABS: BUN 10 mg/dl (7-24); CHLORIDE 107 mmol/L (98-107); CREATININE 1.09 mg/dL (0.70-1.30); POTASSIUM 3.8 mmol/L (3.5-5.1); SODIUM 136 mmol/L (136-145); URIC ACID 6.6 mg/dL (3.5-7.2)
== END 2021-02-18 01:39 | disposition home or self-care (01) ==
LOC: ED 22:15
PROVIDERS: Emergency Medicine
DX: M70.21 Olecranon bursitis, right elbow (principal); F41.9 Anxiety disorder, unspecified; K21.9 Gastro-esophageal reflux disease without esophagitis; I10 Essential (primary) hypertension; J45.909 Unspecified asthma, uncomplicated; E66.01 Morbid (severe) obesity due to excess calories; Z88.2 Allergy status to sulfonamides; Z88.1 Allergy status to other antibiotic agents; Z79.899 Other long term (current) drug therapy; Z87.442 Personal history of urinary calculi; Z68.30 Body mass index [BMI] 30.0-30.9, adult; Z98.890 Other specified postprocedural states; Y93.89 Activity, other specified

== ENCOUNTER → 2021-05-30 | Outpatient (CLI) | payer BC | END | disposition home or self-care (01) | LOC: COVID19 17:44 | PROVIDERS: ATTEND Internal Medicine | DX: U07.1 COVID-19 (principal) ==

== ENCOUNTER → 2021-08-15 | Outpatient (CLI) | payer BC | END | disposition home or self-care (01) | LOC: COVID19 17:14 | PROVIDERS: ATTEND Student in an Organized Health Care Education/Training Program | DX: Z11.52 Encounter for screening for COVID-19 (principal) ==

== ENCOUNTER 2022-05-16 11:25 | Emergency (ER) | payer SELFPAY ==
[~2022-05-16] VITALS: Ht 190.5 cm; Wt 142.9 kg
[2022-05-16 11:32] VITALS: BP 163/110
[2022-05-16 12:09] LABS: BASO # 0.1 10*3/uL (0.0-0.1); EOS # 0.1 10*3/uL (0.0-0.4); EOS % 0.7 % (1.0-4.0); HEMATOCRIT 47.4 % (42.0-52.0); LYMPH # 1.1 10*3/uL (1.3-4.4); LYMPH % 13.1 % (27.0-41.0); MEAN CELL VOLUME 84.2 fl (80.0-94.0); MEAN CORPUSCULAR HGB 29.3 pg (27.0-31.0); MEAN CORPUSCULAR HGB CONC 34.8 g/dl (33.0-37.0); MEAN PLATELET VOLUME 9.5 fl (9.6-12.3); MONO # 0.5 10*3/uL (0.1-1.0); MONO % 5.5 % (3.0-9.0); NEUT # 6.6 10*3/uL (2.3-7.9); NEUT % 79.5 % (47.0-73.0); PLATELET COUNT AUTOMATED 251 10*3/uL (130-400); RED BLOOD COUNT 5.63 10*6/uL (4.50-5.90); RED CELL DISTRI WIDTH 12.8 % (0-14.5); WHITE BLOOD COUNT 8.3 10*3/uL (4.8-10.8)
[2022-05-16 12:25] LABS: ALKALINE PHOSPHATASE 88 U/L (45-117); BUN 4 mg/dl (7-24); CHLORIDE 111 mmol/L (98-107); CREATININE 1.07 mg/dL (0.70-1.30); POTASSIUM 3.8 mmol/L (3.5-5.1); SGOT/AST 26 IU/L (3-35); SGPT/ALT 49 U/L (12-78); SODIUM 141 mmol/L (136-145); TOTAL PROTEIN 7.6 gm/dL (6.4-8.2)
[2022-05-16] MEDS ORDERED: HYDROXYZINE HCL25 MG PO (16:32)
== END 2022-05-16 13:15 | disposition home or self-care (01) ==
LOC: ED 11:25
PROVIDERS: Physician Assistant
DX: G47.00 Insomnia, unspecified (principal); F41.9 Anxiety disorder, unspecified; Z88.2 Allergy status to sulfonamides; Z88.1 Allergy status to other antibiotic agents; J45.909 Unspecified asthma, uncomplicated

== ENCOUNTER 2024-01-16 20:06 | Inpatient (IN) | payer SELFPAY ==
[~2024-01-16] VITALS: Ht 190.5 cm; Wt 147.0 kg
[~2024-01-16 20:06] MED LIST changes: +HYDROXYZINE HCL25 MG PO
[2024-01-16 20:25] VITALS: BP 126/83
[2024-01-16] MEDS ORDERED: Albuterol Sulf/Ipratropium 3 ML VIAL NEB ONE (20:30)
[2024-01-16] MEDS ORDERED: methylPREDNISolone sod succ 125 MG VIAL IV ONE (20:30)
[2024-01-16] MEDS ORDERED: SODIUM CHLORIDE 0.9% 1,000 ML IV SCH (20:30)
[2024-01-16 20:55] LABS: BASO # 0.1 10*3/uL (0.0-0.1); BASO % 0.6 % (0.0-1.0); EOS # 0.1 10*3/uL (0.0-0.4); EOS % 0.6 % (1.0-4.0); HEMATOCRIT 38.4 % (42.0-52.0); MEAN CELL VOLUME 83.3 fl (80.0-94.0); MEAN CORPUSCULAR HGB 28.2 pg (27.0-31.0); MEAN CORPUSCULAR HGB CONC 33.9 g/dl (33.0-37.0); MEAN PLATELET VOLUME 11.1 fl (9.6-12.3); MONO # 0.5 10*3/uL (0.1-1.0); MONO % 5.7 % (3.0-9.0); NEUT # 7.2 10*3/uL (2.3-7.9); NEUT % 81.8 % (47.0-73.0); PLATELET COUNT AUTOMATED 159 10*3/uL (130-400); RED BLOOD COUNT 4.61 10*6/uL (4.50-5.90); RED CELL DISTRI WIDTH 12.8 % (0-14.5); WHITE BLOOD COUNT 8.8 10*3/uL (4.8-10.8)
[2024-01-16 21:07] LABS: ACT PARTIAL THROMBO TIME 35.9 SECONDS (20.0-32.1)
[2024-01-16 21:12] LABS: ALKALINE PHOSPHATASE 72 U/L (46-116); BUN 9 mg/dl (9-23); CHLORIDE 102 mmol/L (98-107); POTASSIUM 2.9 mmol/L (3.4-5.1); SGPT/ALT 23 U/L (5-49); TOTAL PROTEIN 6.8 gm/dL (6.0-8.0)
[2024-01-16 21:22] LABS: ETHYL ALCOHOL < 3.0 mg/dl (<3)
[2024-01-16] MEDS ORDERED: LEVOFLOXACIN 150 ML IV ONE (21:30)
[2024-01-16] MEDS ORDERED: POTASSIUM CHLORIDE IN WATER 100 ML IV SCH (22:00)
[2024-01-16 22:08] LABS: BILIRUBIN Negative (Negative); BLOOD Negative (Negative); CLARITY Clear (Clear); COLOR Yellow (Yellow); GLUCOSE Negative (Negative); KETONE Trace (Negative); LEUKO ESTERASE Negative (Negative); NITRITE Negative (Negative); PH 7.5 (4.5-8.0); SPECIFIC GRAVITY 1.025 (1.001-1.030)
[2024-01-16 22:15] LABS: URINE AMPHETAMINES Negative (1000ng/ml); URINE BARBITURATES Negative (200ng/ml); URINE BENZODIAZEPINES Positive (200ng/ml); URINE CANNABINOIDS (THC) Negative (50ng/ml); URINE COCAINE Negative (300ng/ml); URINE METHADONE Negative (300ng/ml); URINE OPIATES Negative (300ng/ml); URINE PHENCYCLIDINE Negative (25ng/ml)
[2024-01-16 22:22] LABS: BACTERIA TRACE; FINE GRANULAR CAST 0-2
[2024-01-16 22:23] LABS: MUCOUS 1+
[2024-01-16 23:26] VITALS: BP 137/80
[2024-01-16 23:50] VITALS: BP 141/83
[2024-01-17] MEDS ORDERED: MORPHINE Sulfate 2 MG/ML SYR IV PRN (00:10)
[2024-01-17] MEDS ORDERED: Ondansetron Hydrochloride 4 MG/2 ML VIAL IV PRN (00:10)
[2024-01-17] MEDS ORDERED: ACETAMINOPHEN 325 MG TAB PO PRN (00:10)
[2024-01-17] MEDS ORDERED: ACETAMINOPHEN 650 MG SUPP R PRN (00:10)
[2024-01-17] MEDS ORDERED: BISACODYL 5 MG TAB PO PRN (00:10)
[2024-01-17] MEDS ORDERED: Magnesium Hydroxide 30 ML UDC PO PRN (00:10)
[2024-01-17] MEDS ORDERED: Acetaminophen/Hydrocodone 5 MG/325 MG TABLET PO PRN (00:10)
[2024-01-17] MEDS ORDERED: Albuterol Sulf/Ipratropium 3 ML VIAL NEB SCH (00:20)
[2024-01-17 05:19] LABS: VITAMIN D, 25-HYDROXY 21.2 ng/mL (30-100)
[2024-01-17 05:20] LABS: BUN 8 mg/dl (9-23); CHLORIDE 106 mmol/L (98-107); CHOLESTEROL 125 mg/dL (<200); FREE T4 1.02 ng/dl (0.89-1.76); LDL CHOLESTEROL 86 mg/dL (9-159); TRIGLYCERIDES 75 mg/dl (<150)
[2024-01-17 05:21] LABS: POTASSIUM 4.1 mmol/L (3.4-5.1)
[2024-01-17] MEDS ORDERED: DEXTROSE 10 % IN WATER 250 ML IV PRN (05:35)
[2024-01-17 06:11] LABS: BASO % 0.4 % (0.0-1.0); HEMATOCRIT 39.9 % (42.0-52.0); LYMPH # 0.4 10*3/uL (1.3-4.4); LYMPH % 9.1 % (27.0-41.0); MEAN CELL VOLUME 84.5 fl (80.0-94.0); MEAN CORPUSCULAR HGB 28.2 pg (27.0-31.0); MEAN CORPUSCULAR HGB CONC 33.3 g/dl (33.0-37.0); MEAN PLATELET VOLUME 11.3 fl (9.6-12.3); MONO # 0.1 10*3/uL (0.1-1.0); MONO % 1.1 % (3.0-9.0); NEUT # 4.2 10*3/uL (2.3-7.9); NEUT % 89.2 % (47.0-73.0); PLATELET COUNT AUTOMATED 153 10*3/uL (130-400); RED BLOOD COUNT 4.72 10*6/uL (4.50-5.90); RED CELL DISTRI WIDTH 12.7 % (0-14.5); WHITE BLOOD COUNT 4.8 10*3/uL (4.8-10.8)
[2024-01-17] MEDS ORDERED: INSULIN LISPRO 1 UNIT/0.01 ML SQ SCH (07:30)
[2024-01-17 08:00] VITALS: BP 137/84
[2024-01-17] MEDS ORDERED: LEVOFLOXACIN 150 ML IV SCH (10:00)
[2024-01-17] MEDS ORDERED: GUAIFENESIN 600 MG TAB ER PO SCH (10:00)
[2024-01-17] MEDS ORDERED: methylPREDNISolone sod succ 40 MG VIAL IV SCH (10:00)
[2024-01-17] MEDS ORDERED: Enoxaparin Sodium 40 MG/0.4 ML SYR SC SCH (10:00)
[2024-01-17 10:44] VITALS: BP 121/66
[2024-01-17 16:10] VITALS: BP 121/82
[2024-01-17 20:00] VITALS: BP 125/74
[2024-01-18] VITALS: BP 133/74
[2024-01-18 06:28] LABS: BUN 9 mg/dl (9-23); CHLORIDE 106 mmol/L (98-107); POTASSIUM 3.8 mmol/L (3.4-5.1)
[2024-01-18 06:41] LABS: BASO % 0.1 % (0.0-1.0); HEMATOCRIT 37.9 % (42.0-52.0); LYMPH # 0.8 10*3/uL (1.3-4.4); LYMPH % 8.2 % (27.0-41.0); MEAN CELL VOLUME 84.4 fl (80.0-94.0); MEAN CORPUSCULAR HGB 28.7 pg (27.0-31.0); MEAN PLATELET VOLUME 11.2 fl (9.6-12.3); MONO # 0.4 10*3/uL (0.1-1.0); MONO % 4.1 % (3.0-9.0); NEUT % 87.3 % (47.0-73.0); PLATELET COUNT AUTOMATED 174 10*3/uL (130-400); RED BLOOD COUNT 4.49 10*6/uL (4.50-5.90); RED CELL DISTRI WIDTH 12.9 % (0-14.5); WHITE BLOOD COUNT 10.3 10*3/uL (4.8-10.8)
[2024-01-18 08:00] VITALS: BP 116/57
[2024-01-18] MEDS ORDERED: Vitamin D 1,000 IU TAB (25 MCG) PO SCH (10:00)
[2024-01-18] MEDS ORDERED: LEVOFLOXACIN750 M2 PO ×2 (10:52→10:57)
[2024-01-18] MEDS ORDERED: PROAIR RESPICL90 MCG INH (10:55)
[2024-01-18] MEDS ORDERED: Vitamin D (1,000 UNI PO (10:55)
== END 2024-01-18 11:59 | disposition home or self-care (01) | DRG 871 ==
LOC: ED 20:06 → EDHOLD 22:47 → 4E 23:22
PROVIDERS: Family Medicine; Internal Medicine; Student in an Organized Health Care Education/Training Program; ADMIT Internal Medicine; ATTEND Internal Medicine
DX: A41.9 Sepsis, unspecified organism (principal); J18.9 Pneumonia, unspecified organism; J96.00 Acute respiratory failure, unspecified whether with hypoxia or hypercapnia; J44.1 Chronic obstructive pulmonary disease with (acute) exacerbation; J44.0 Chronic obstructive pulmonary disease with (acute) lower respiratory infection; E87.1 Hypo-osmolality and hyponatremia; F11.20 Opioid dependence, uncomplicated; Z68.41 Body mass index [BMI] 40.0-44.9, adult; E87.6 Hypokalemia; G25.81 Restless legs syndrome; F41.9 Anxiety disorder, unspecified; G89.29 Other chronic pain; M54.9 Dorsalgia, unspecified; K21.9 Gastro-esophageal reflux disease without esophagitis; E66.01 Morbid (severe) obesity due to excess calories; R73.9 Hyperglycemia, unspecified; D64.9 Anemia, unspecified; F13.10 Sedative, hypnotic or anxiolytic abuse, uncomplicated; F19.10 Other psychoactive substance abuse, uncomplicated; E55.9 Vitamin D deficiency, unspecified; F17.290 Nicotine dependence, other tobacco product, uncomplicated; T38.0X5A Adverse effect of glucocorticoids and synthetic analogues, initial encounter; Z88.1 Allergy status to other antibiotic agents; Z88.2 Allergy status to sulfonamides; Z88.8 Allergy status to other drugs, medicaments and biological substances; Z87.442 Personal history of urinary calculi; Z71.6 Tobacco abuse counseling; Y92.89 Other specified places as the place of occurrence of the external cause

== ENCOUNTER 2024-08-19 15:19 | Emergency (ER) | payer SELFPAY ==
[~2024-08-19] VITALS: Ht 190.5 cm; Wt 129.3 kg
[~2024-08-19 15:19] MED LIST changes: +LEVOFLOXACIN750 M2 PO; +PROAIR RESPICL90 MCG INH; +Vitamin D (1,000 UNI PO
[2024-08-19 15:33] VITALS: BP 168/90
[2024-08-19] MEDS ORDERED: IBUPROFEN 800 MG TAB PO ONE (15:45)
[2024-08-19] MEDS ORDERED: Ondansetron Hydrochloride 4 MG TAB PO ONE (15:45)
[2024-08-19] MEDS ORDERED: BUPRENORPHINE HCL/NALOXONE 8 MG-2 MG SL TABLET SL ONE (15:45)
[2024-08-19] MEDS ORDERED: cloNIDine Hydrochloride 0.1 MG TAB PO ONE (15:45)
[2024-08-19] MEDS ORDERED: CLONIDINE0.3 MG PO (15:48)
[2024-08-19] MEDS ORDERED: IBU800 M2 PO (15:48)
[2024-08-19] MEDS ORDERED: Ondansetron4 MG PO (15:48)
[2024-08-19] MEDS ORDERED: SUBOXONE 8 MG-1 EACH BC (15:48)
== END 2024-08-19 16:12 | disposition home or self-care (01) ==
LOC: ED 15:19
DX: F11.13 Opioid abuse with withdrawal (principal); M79.10 Myalgia, unspecified site; R11.0 Nausea; F17.200 Nicotine dependence, unspecified, uncomplicated; F19.10 Other psychoactive substance abuse, uncomplicated; Z88.2 Allergy status to sulfonamides; Z88.1 Allergy status to other antibiotic agents; Z88.8 Allergy status to other drugs, medicaments and biological substances; Z98.890 Other specified postprocedural states